=== PATIENT | male | born 1950 | race Caucasian/White ===

== ENCOUNTER 2024-05-05 06:55 | Day surgery (SDC) | payer OTHER ==
[2024-05-04 16:08] LABS: Absolute Eosinophils 0.3 K/uL (0-0.5); Absolute Lymphocytes (CBC) 1.1 K/uL (0.7-4.9); Absolute Monocytes 0.6 K/uL (0.1-1.3); Absolute Neutrophil 4.2 K/uL (1.8-8.0); Basophils % 0.8 % (0-1.3); Eosinophils % 4.3 % (0-4.4); Hematocrit 45.4 % (39.6-49.0); Hemoglobin 15.4 g/dL (13.6-17.9); Lymphocytes % 17.4 % (15.3-44.8); MCH 31.5 pg (27.0-35.0); MCHC 33.8 g/dL (32.0-36.0); MCV 93.1 fL (80-100); MPV 6.4 fL (7.6-11.3); Neutrophils % 68.5 % (41.7-73.7); Platelets 279 thou/uL (152-406); RBC Red Blood Cell Count 4.88 M/uL (4.33-5.43); Red Cell Distribution Width 12.7 % (12.1-15.2)
[2024-05-04 16:23] LABS: Anion Gap 7.1 mEq/L (5.0-15.0); Potassium 4.1 mEq/L (3.5-5.1)
[2024-05-05] MEDS: Ringers Lactate 1,000 ML IV ONE (07:30)
[2024-05-05] MEDS ORDERED: LIDOCAINE 1% MPF 5 ML VIAL ONE (08:09)
[2024-05-05] MEDS ORDERED: propofoL 200 MG/20 ML VIAL IV ONE ×2 (08:09→08:10)
[2024-05-05 09:35] VITALS: TEMP 97.8; O2SAT 97
[2024-05-05 09:38] VITALS: BP 125/71
--- NOTE | 2024-05-10 12:27 | EKG ---
Test Date: 2024-05-04 Test Time: 16:52:10 Production Cell Leader: RENEE MEASUREMENT RESULTS: Intervals: Rate: 71 DE: 138 QRSD: 104 QT: 368 QTc: 399 [place]: P: 70 DE: 138 QRS: -17 T: 46 INTERPRETIVE STATEMENTS: Normal sinus rhythm Incomplete right bundle branch block Borderline ECG No previous ECG available for comparison Electronically Signed On 05-10-24 12:17:06 FOURCHETTE SEWER by Everett Ruvalcaba
== END 2024-05-05 09:30 | disposition home or self-care (01) ==
LOC: OR 06:55
PROVIDERS: ATTEND Surgery
PROC: 0DBL8ZX Excision of Transverse Colon, Via Natural or Artificial Opening Endoscopic, Diagnostic (ICD-10-PCS; principal; 2024-05-05 08:15)
DX: Z12.11 Encounter for screening for malignant neoplasm of colon (principal); K64.4 Residual hemorrhoidal skin tags; K64.8 Other hemorrhoids; K63.5 Polyp of colon
CPT/HCPCS: 93005; 85025; 80048; 36415; 88305; 45384; J2704 ×2; J2003; J7120